=== PATIENT | female | born 1970 | race Caucasian/White ===

== ENCOUNTER → 2017-12-08 13:45 | Outpatient (CLI) | payer OTHER, SELFPAY ==
--- NOTE | 2017-12-08 | DI.CT.S_ITS ---
PROCEDURE: CT ABDOMEN PELVIS W CON INDICATIONS: RIGHT UPPER QUADRANT PAIN FOR 2 WEEKS TECHNIQUE: After the administration of oral and intravenous contrast, 5 mm thick sections acquired from the diaphragms to the symphysis. 5 mm thick coronal and sagittal reformats were performed. For radiation dose reduction, the following was used: automated exposure control, adjustment of mA and/or kV according to patient size. COMPARISON: None. FINDINGS: Image quality: Excellent. ABDOMEN: Lung bases: A 5 mm groundglass nodule is present adjacent to a 3 mm groundglass nodule within the left lung base (series 3, image 5). A 3 mm nodule is present within the right oblique fissure (series 3, image one). No pleural effusion. Heart is normal size. Solid organs: Liver is normal in size and enhancement. Gallbladder is contracted. Biliary system is non-dilated. Pancreas enhances normally. Spleen is normal in size and enhancement. No adrenal nodules. Kidneys are normal in size and enhancement, without hydronephrosis. Peritoneum and bowel: Stomach, small bowel, and colon loops are normal in caliber and wall thickness. The appendix is thin walled. No free fluid or air. Nodes and vessels: No retroperitoneal or mesenteric adenopathy. Aorta and inferior vena cava are normal in caliber. Miscellaneous: No ventral hernias. PELVIS: Genitourinary: Bladder wall thickness is normal. Miscellaneous: No inguinal hernias or adenopathy. Bones: No suspicious bony lesions. No vertebral body compression fractures. IMPRESSION: 1. No acute intra-abdominal findings. Normal appendix. 2. No findings to explain right upper quadrant pain. Dictated by: Virgie Olivares M.D. on 12/08/2017 at 15:43 Approved by: Virgie Olivares M.D. on 12/08/2017 at 15:47
== END ==
PROVIDERS: Visit Provider Family Medicine
DX: R10.11 Right upper quadrant pain (principal)
CPT/HCPCS: 74177; Q9967